=== PATIENT | male | born 1975 | race Caucasian/White ===

== ENCOUNTER 2016-06-20 14:25 | Emergency (ER) | payer SELFPAY ==
--- NOTE | 2016-06-20 14:52 | ED CLINICAL REPORT ---
Clinical Report - Physicians/Mid Levels [facility] [address] [place] [address] 06/20/2016 14:26 Patient: SALAS FERNANDEZ Arrived- By private vehicle. Historian- patient. HISTORY OF PRESENT ILLNESS Chief Complaint: LESION. This started The past few days and is still present and worsening. It was gradual in onset and has been constant but is not gone now. It is described as painful and burning. It has been located on the right knee. No cause has been identified. (patient reports having a small blister to the anterior aspect of the right knee. Patient reports that he went to work and noted that the area had popped. Patient reports that he had expressed clear looking fluid from the wound. The patient states that over the past few days has been getting progressively worse and noted the redness surrounding the area.). Similar symptoms previously: None. Recent medical care: Not recently seen/assessed. REVIEW OF SYSTEMS No fever, nausea or vomiting. All systems otherwise negative, except as recorded above. PAST HISTORY See nurses notes. Tetanus immunization status is up-to-date. SOCIAL HISTORY Never smoker. Alcohol use. History of occasional drug use: marijuana. Is a local resident. ADDITIONAL NOTES The nursing notes have been reviewed. PHYSICAL EXAM Vital Signs: 06/20/2016 14:31 BP: 117/77. HR: 97. RR: 20. O2 saturation: 100%. Temp: 98.8 F. Blood pressure normal. Oxygen saturation normal. Appearance: Alert. Oriented X3. No acute distress. Eyes: Pupils equal, round and reactive to light. Conjunctivae and eyelids normal. ENT: Ears normal. Nose normal. Pharynx normal. Neck: Neck supple. CVS: Normal heart rate and rhythm. Heart sounds normal. Respiratory: No respiratory distress. Breath sounds normal. Chest nontender. Abdomen: Nontender. No organomegaly. Skin: Skin warm and dry. Normal skin color. No rash. Normal skin turgor. (kimberley of cellulitis to the anterior aspect of the right knee. Right-sided inguinal lymphadenopathy. No other overlying skin changes. There is a small abrasion to the middle aspect of theright anterior knee in the middle of the area of cellulitis. Area of cellulitis extends from the anterior aspect of the knee to the proximal walden and distal thigh. At this widest diameter it is only 5 cm wide and approximately 9 cm long. the areas outlined with a skin pen. No abscess noted. Joint is not affected. No crepitus. No bony abnormalities. No foreign bodies.). Extremities: Normal external inspection. Extremities nontender. Neuro: Oriented X 3. No motor deficit. No sensory deficit. PROGRESS AND PROCEDURES Course of Care: The patient is a pleasant 40-year-old male presenting for evaluation of cellulitis of the right lower extremity. On examination, there is no concern for septic joint. It is clearly limited to the surface skin. There is no signs of abscess or need for drainage. first dose of antibiotic provided here in the emergency department. Do not the patient is being admitted to the hospital. No signs of sepsis. no evidence of compartment syndrome. Patient is agreeable to the treatment and plan. I discussed with patient workup, diagnosis, home care, follow-up, and return precautions. All Questions answered. The patient expressed understanding of these instructions and was agreeable to them. Disposition: Discharged. Condition: good. CLINICAL IMPRESSION 06/20/2016 14:31 BP: 117/77. HR: 97. RR: 20. O2 saturation: 100%. Temp: 98.8 F. Blood pressure normal. Oxygen saturation normal. Cellulitis of the right knee (acute). INSTRUCTIONS Do not work for two days. (Do not take old antibiotics. Finish your course completely. Ask your pharmacist or primary care doctor for any questions.). Your Current Medications: CONTINUE TAKING THE FOLLOWING MEDICATIONS: None*. Prescription Medications: Keflex 500 mg: take 1 capsule orally every 8 hours for 10 days. No refill. Substitution is permissible. (disp 30 caps) Bactrim DS 800 mg / 160 mg: take 1 tablet orally every 12 hours for 10 days. No refill. Substitution is permissible. (Disp 20 tabs) Follow-up: Return to the emergency department as needed. Screening today revealed the patient's blood pressure to be in the normal range. The patient should follow up with a primary care provider for blood pressure management. Understanding of the discharge instructions verbalized by patient. Follow-up with: [facility], , , [address], , [place], [address] Follow up in two days. Reason for referral: Contact for follow up appointment if you do not have a primary care doctor. (Electronically signed by Esequiel Schneider Dr. 06/26/2016 5:43)
--- NOTE | 2016-06-20 14:52 | ED CLINICAL REPORT ---
Clinical Report - Physicians/Mid Levels [facility] [address] [place] [address] 06/20/2016 14:26 Patient: SALAS FERNANDEZ Arrived- By private vehicle. Historian- patient. HISTORY OF PRESENT ILLNESS Chief Complaint: LESION. This started The past few days and is still present and worsening. It was gradual in onset and has been constant but is not gone now. It is described as painful and burning. It has been located on the right knee. No cause has been identified. (patient reports having a small blister to the anterior aspect of the right knee. Patient reports that he went to work and noted that the area had popped. Patient reports that he had expressed clear looking fluid from the wound. The patient states that over the past few days has been getting progressively worse and noted the redness surrounding the area.). Similar symptoms previously: None. Recent medical care: Not recently seen/assessed. REVIEW OF SYSTEMS No fever, nausea or vomiting. All systems otherwise negative, except as recorded above. PAST HISTORY See nurses notes. Tetanus immunization status is up-to-date. SOCIAL HISTORY Never smoker. Alcohol use. History of occasional drug use: marijuana. Is a local resident. ADDITIONAL NOTES The nursing notes have been reviewed. PHYSICAL EXAM Vital Signs: 06/20/2016 14:31 BP: 117/77. HR: 97. RR: 20. O2 saturation: 100%. Temp: 98.8 F. Blood pressure normal. Oxygen saturation normal. Appearance: Alert. Oriented X3. No acute distress. Eyes: Pupils equal, round and reactive to light. Conjunctivae and eyelids normal. ENT: Ears normal. Nose normal. Pharynx normal. Neck: Neck supple. CVS: Normal heart rate and rhythm. Heart sounds normal. Respiratory: No respiratory distress. Breath sounds normal. Chest nontender. Abdomen: Nontender. No organomegaly. Skin: Skin warm and dry. Normal skin color. No rash. Normal skin turgor. (kimberley of cellulitis to the anterior aspect of the right knee. Right-sided inguinal lymphadenopathy. No other overlying skin changes. There is a small abrasion to the middle aspect of theright anterior knee in the middle of the area of cellulitis. Area of cellulitis extends from the anterior aspect of the knee to the proximal walden and distal thigh. At this widest diameter it is only 5 cm wide and approximately 9 cm long. the areas outlined with a skin pen. No abscess noted. Joint is not affected. No crepitus. No bony abnormalities. No foreign bodies.). Extremities: Normal external inspection. Extremities nontender. Neuro: Oriented X 3. No motor deficit. No sensory deficit. PROGRESS AND PROCEDURES Course of Care: The patient is a pleasant 40-year-old male presenting for evaluation of cellulitis of the right lower extremity. On examination, there is no concern for septic joint. It is clearly limited to the surface skin. There is no signs of abscess or need for drainage. first dose of antibiotic provided here in the emergency department. Do not the patient is being admitted to the hospital. No signs of sepsis. no evidence of compartment syndrome. Patient is agreeable to the treatment and plan. I discussed with patient workup, diagnosis, home care, follow-up, and return precautions. All Questions answered. The patient expressed understanding of these instructions and was agreeable to them. Disposition: Discharged. Condition: good. CLINICAL IMPRESSION 06/20/2016 14:31 BP: 117/77. HR: 97. RR: 20. O2 saturation: 100%. Temp: 98.8 F. Blood pressure normal. Oxygen saturation normal. Cellulitis of the right knee (acute). INSTRUCTIONS Do not work for two days. (Do not take old antibiotics. Finish your course completely. Ask your pharmacist or primary care doctor for any questions.). Your Current Medications: CONTINUE TAKING THE FOLLOWING MEDICATIONS: None*. Prescription Medications: Keflex 500 mg: take 1 capsule orally every 8 hours for 10 days. No refill. Substitution is permissible. (disp 30 caps) Bactrim DS 800 mg / 160 mg: take 1 tablet orally every 12 hours for 10 days. No refill. Substitution is permissible. (Disp 20 tabs) Follow-up: Return to the emergency department as needed. Screening today revealed the patient's blood pressure to be in the normal range. The patient should follow up with a primary care provider for blood pressure management. Understanding of the discharge instructions verbalized by patient. Follow-up with: [facility], , , [address], , [place], [address] Follow up in two days. Reason for referral: Contact for follow up appointment if you do not have a primary care doctor. (Electronically signed by Esequiel Schneider Dr. 06/26/2016 5:43)
--- NOTE | 2016-06-20 14:52 | ED NURSING NOTES ---
Clinical Report - Nurses [facility] [place] [address] 06/20/2016 14:26 Patient: SALAS FERNANDEZ TRIAGE Triage time 14:32. Acuity: LEVEL 3. Chief Complaint: RIGHT LOWER EXTREMITY PAIN, SWELLING and REDNESS. --14:39 Jason Fam R.N. 14:31 06/20/16. BP: 117/77. HR: 97. RR: 20. O2 saturation: 100%. Temp: 98.8 F. Pain level now 06/18. --14:39 Jason Fam R.N. Weight: 77.1 kg stated. Height/Length: 72 inches Per Patient. BMI: 23.1. --14:37 Jason Fam R.N. Medications None. --14:37 Jason Fam R.N. Allergies None. --14:37 Jason Fam R.N. History Arrived by private vehicle. Historian: patient. An injury may have occurred. 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 SOCIAL HX: Smoker- current status unknown. Alcohol use. History of drug use: marijuana. FALL RISK ASSESSMENT: Fall risk assessment completed. No fall risk identified. NUTRITIONAL RISK ASSESSMENT: The nutritional risk assessment revealed no deficiencies. FUNCTIONAL ASSESSMENT: Functional assessment: no impairments noted. LEARNING NEEDS ASSESSMENT: The learning needs assessment revealed no barriers. SKIN INTEGRITY ASSESSMENT: Skin integrity risk assessment completed. No skin integrity risk identified. --14:39 Jason Fam R.N. PHYSICAL ASSESSMENT GENERAL / NEURO / PSYCH: Alert. Appears in no acute distress. Appears in pain. EXTREMITIES: Extremity pulses are within normal limits. Neuro-vascular status intact to the extremity. --14:41 Jason Fam R.N. NURSING PROGRESS NOTES Patient identifiers checked. Call light placed in reach. Bed placed in lowest position. --14:41 Jason Fam R.N. 14:57 06/20/2016 Keflex (Cephalexin) PO Capsules 500 mg given. --15:07 Jason Fam R.N. Locked/Released at 06/20/2016 15:09 by Jason Fam R.N.
--- NOTE | 2016-06-20 14:52 | ED NURSING NOTES ---
Clinical Report - Nurses [facility] [place] [address] 06/20/2016 14:26 Patient: SALAS FERNANDEZ TRIAGE Triage time 14:32. Acuity: LEVEL 3. Chief Complaint: RIGHT LOWER EXTREMITY PAIN, SWELLING and REDNESS. --14:39 Jason Fam R.N. 14:31 06/20/16. BP: 117/77. HR: 97. RR: 20. O2 saturation: 100%. Temp: 98.8 F. Pain level now 06/18. --14:39 Jason Fam R.N. Weight: 77.1 kg stated. Height/Length: 72 inches Per Patient. BMI: 23.1. --14:37 Jason Fam R.N. Medications None. --14:37 Jason Fam R.N. Allergies None. --14:37 Jason Fam R.N. History Arrived by private vehicle. Historian: patient. An injury may have occurred. 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 SOCIAL HX: Smoker- current status unknown. Alcohol use. History of drug use: marijuana. FALL RISK ASSESSMENT: Fall risk assessment completed. No fall risk identified. NUTRITIONAL RISK ASSESSMENT: The nutritional risk assessment revealed no deficiencies. FUNCTIONAL ASSESSMENT: Functional assessment: no impairments noted. LEARNING NEEDS ASSESSMENT: The learning needs assessment revealed no barriers. SKIN INTEGRITY ASSESSMENT: Skin integrity risk assessment completed. No skin integrity risk identified. --14:39 Jason Fam R.N. PHYSICAL ASSESSMENT GENERAL / NEURO / PSYCH: Alert. Appears in no acute distress. Appears in pain. EXTREMITIES: Extremity pulses are within normal limits. Neuro-vascular status intact to the extremity. --14:41 Jason Fam R.N. NURSING PROGRESS NOTES Patient identifiers checked. Call light placed in reach. Bed placed in lowest position. --14:41 Jason Fam R.N. 14:57 06/20/2016 Keflex (Cephalexin) PO Capsules 500 mg given. --15:07 Jason Fam R.N. Locked/Released at 06/20/2016 15:09 by Jason Fam R.N.
--- NOTE | 2016-06-20 14:53 | ED ORDER SUMMARY ---
..... Patient: SALAS FERNANDEZ OrderSheet [facility] VisitID: [id number] [address] [place] [address] 40y, M Registration Date/Time: 06/20/2016 ORDER SHEET Weight: 77.1 kg (stated) Allergies: None GENERAL ORDERS: MEDICATION ORDERS: Keflex PO 500 mg (NOW) (14:48 06/20/2016 Fiona Nichole) (15:07 GMarshalpablo R.N.) IV FLUIDS: ORDER SHEET NOTES: [Electronically signed by Jason Fam R.N. (15:09 06/20/2016)] [Electronically signed by Esequiel Schneider Dr. (05:43 06/26/2016)] [Electronically locked/signed by Jason Fam R.N. (15:09 06/20/2016)]
--- NOTE | 2016-06-20 14:53 | ED ORDER SUMMARY ---
..... Patient: SALAS FERNANDEZ OrderSheet [facility] VisitID: [id number] [address] [place] [address] 40y, M Registration Date/Time: 06/20/2016 ORDER SHEET Weight: 77.1 kg (stated) Allergies: None GENERAL ORDERS: MEDICATION ORDERS: Keflex PO 500 mg (NOW) (14:48 06/20/2016 Fiona Nichole) (15:07 GMarshalpablo R.N.) IV FLUIDS: ORDER SHEET NOTES: [Electronically signed by Jason Fam R.N. (15:09 06/20/2016)] [Electronically signed by Esequiel Schneider Dr. (05:43 06/26/2016)] [Electronically locked/signed by Jason Fam R.N. (15:09 06/20/2016)]
--- NOTE | 2016-06-26 05:43 | ED MED RECONCILIATION SUMMARY ---
Patient: SALAS FERNANDEZ Medication Reconciliation Report [facility] VisitID: [id number] [address] [place] [address] 40y, M Registration Date/Time: 06/20/2016 Weight: 77.1 kg Height/Length: 72 in. BMI: 23.1 ALLERGIES: None The patient's Home Medications are listed below: NONE. The source(s) of the original Home Medication information: Not obtained. The following Medications were given to the patient in the Emergency Department: Keflex [PO] PO 500 mg, administered: 06/20/2016 2:57:00 PM The following Medications were prescribed to the patient: Keflex 500 mg: take 1 capsule orally every 8 hours for 10 days. No refill. Substitution is permissible.(disp 30 caps) -- Esequiel Schneider Dr. Bactrim DS 800 mg / 160 mg: take 1 tablet orally every 12 hours for 10 days. No refill. Substitution is permissible.(Disp 20 tabs) -- Esequiel Schneider Dr.
--- NOTE | 2016-06-26 05:43 | ED MED RECONCILIATION SUMMARY ---
Patient: SALAS FERNANDEZ Medication Reconciliation Report [facility] VisitID: [id number] [address] [place] [address] 40y, M Registration Date/Time: 06/20/2016 Weight: 77.1 kg Height/Length: 72 in. BMI: 23.1 ALLERGIES: None The patient's Home Medications are listed below: NONE. The source(s) of the original Home Medication information: Not obtained. The following Medications were given to the patient in the Emergency Department: Keflex [PO] PO 500 mg, administered: 06/20/2016 2:57:00 PM The following Medications were prescribed to the patient: Keflex 500 mg: take 1 capsule orally every 8 hours for 10 days. No refill. Substitution is permissible.(disp 30 caps) -- Esequiel Schneider Dr. Bactrim DS 800 mg / 160 mg: take 1 tablet orally every 12 hours for 10 days. No refill. Substitution is permissible.(Disp 20 tabs) -- Esequiel Schneider Dr.
--- NOTE | 2016-06-26 05:43 | ED MAR SUMMARY ---
..... Medication Administration Record [facility] [address] [place] [address] Patient: SALAS FERNANDEZ Visit ID: [id number] 40y, M Weight: 77.1 kg Height/Length: 72 in BMI: 23.1 ALLERGIES: None Given 14:57 06/20/2016 Jason Fam R.N. Medication Administered: KEFLEX [PO] (CEPHALEXIN), Dose: 500 mg Capsules PO. Medication Ordered: Keflex PO 500 mg (NOW).
--- NOTE | 2016-06-26 05:43 | ED DISCHARGE INSTRUCTIONS ---
Patient: SALAS FERNANDEZ General Instructions [facility] VisitID: [id number] [address] [place] [address] 40y, M Registration Date/Time: 06/20/2016 06/20/2016 14:31 BP: 117/77. HR: 97. RR: 20. O2 saturation: 100%. Temp: 98.8 F. Blood pressure normal. Oxygen saturation normal. Cellulitis of the right knee (acute). INSTRUCTIONS Do not work for two days. (Do not take old antibiotics. Finish your course completely. Ask your pharmacist or primary care doctor for any questions.). Your Current Medications: CONTINUE TAKING THE FOLLOWING MEDICATIONS: None*. Prescription Medications: Keflex 500 mg: take 1 capsule orally every 8 hours for 10 days. No refill. Substitution is permissible. (disp 30 caps) Bactrim DS 800 mg / 160 mg: take 1 tablet orally every 12 hours for 10 days. No refill. Substitution is permissible. (Disp 20 tabs) Follow-up: Return to the emergency department as needed. Screening today revealed the patient's blood pressure to be in the normal range. The patient should follow up with a primary care provider for blood pressure management. Understanding of the discharge instructions verbalized by patient. Follow-up with: [facility], , , [address], [place], [id number] Follow up in two days. Reason for referral: Contact for follow up appointment if you do not have a primary care doctor. ADDITIONAL INFORMATION Cellulitis You have an infection of the skin known as cellulitis. This usually starts with a scrape, cut, insect bite, blister or other opening in the skin which becomes infected. This is a serious condition. It must be watched closely to be sure the infection is not spreading. With antibiotic treatment, the size of the red area will gradually shrink in size until the skin returns to normal. This will take 7-10 days. The red area should never increase in size once the antibiotic medicine has been started. Occasionally, an infection will be resistant to one antibiotic and another one will have to be used. Home Care: 1) Limit the use of the affected part, since excess movement can cause the infection to spread. 2) If the infection is on your leg, walk as little as possible during the first few days of the treatment. Keep your leg elevated while sitting. This will reduce swelling. 3) Take all of the antibiotic medicine exactly as directed until it is gone. Be careful not to miss any doses, especially during the first seven days. Follow Up with your doctor or this facility as directed. Check the infected area daily for the warning signs listed below. Get Prompt Medical Attention if any of the following occur: -- Spreading area of redness -- Increasing swelling or pain -- Appearance of pus or drainage -- Fever over 100.4 F (38.0 C) oral, or over 101.4 F (38.6 C) rectal, after two days on antibiotics Cephalexin Monohydrate Oral tablet What is this medicine? CEPHALEXIN (sef a MELISSA in) is a cephalosporin antibiotic. It is used to treat certain kinds of bacterial infections It will not work for colds, flu, or other viral infections. How should I use this medicine? Take this medicine by mouth with a full glass of water. Follow the directions on the prescription label. This medicine can be taken with or without food. Take your medicine at regular intervals. Do not take your medicine more often than directed. Take all of your medicine as directed even if you think you are better. Do not skip doses or stop your medicine early. Talk to your materials planning analyst regarding the use of this medicine in children. While this drug may be prescribed for selected conditions, precautions do apply. What side effects may I notice from receiving this medicine? Side effects that you should report to your doctor or health interior plant caretaker as soon as possible: allergic reactions like skin rash, itching or hives, swelling of the face, lips, or tongue breathing problems pain or trouble passing urine redness, blistering, peeling or loosening of the skin, including inside the mouth severe or watery diarrhea unusually weak or tired yellowing of the eyes, skin Side effects that usually do not require medical attention (report to your doctor or health interior plant caretaker if they continue or are bothersome): gas or heartburn genital or anal irritation headache joint or muscle pain nausea, vomiting What may interact with this medicine? probenecid some other antibiotics What if I miss a dose? If you miss a dose, take it as soon as you can. If it is almost time for your next dose, take only that dose. Do not take double or extra doses. There should be at least 4 to 6 hours between doses. Where should I keep my medicine? Keep out of the reach of children. Store at room temperature between 59 and 86 degrees F (15 and 30 degrees C). Throw away any unused medicine after the expiration date. What should I tell my health care provider before I take this medicine? They need to know if you have any of these conditions: kidney disease stomach or intestine problems, especially colitis an unusual or allergic reaction to cephalexin, other cephalosporins, penicillins, other antibiotics, medicines, foods, dyes or preservatives or trying to get breast-feeding What should I watch for while using this medicine? Tell your doctor or health interior plant caretaker if your symptoms do not begin to improve in a few days. Do not treat diarrhea with over the counter products. Contact your doctor if you have diarrhea that lasts more than 2 days or if it is severe and watery. If you have diabetes, you may get a false-positive result for sugar in your urine. Check with your doctor or health interior plant caretaker. Sulfamethoxazole, Trimethoprim Oral tablet What is this medicine? SULFAMETHOXAZOLE; TRIMETHOPRIM or SMX-TMP (suhl fuh meth OK allyson zohl; trye METH oh prim) is a combination of a sulfonamide antibiotic and a second antibiotic, trimethoprim. It is used to treat or prevent certain kinds of bacterial infections. It will not work for colds, flu, or other viral infections. How should I use this medicine? Take this medicine by mouth with a full glass of water. Follow the directions on the prescription label. Take your medicine at regular intervals. Do not take it more often than directed. Do not skip doses or stop your medicine early. Talk to your materials planning analyst regarding the use of this medicine in children. Special care may be needed. This medicine has been used in children as young as 2 months of age. What side effects may I notice from receiving this medicine? Side effects that you should report to your doctor or health interior plant caretaker as soon as possible: allergic reactions like skin rash or hives, swelling of the face, lips, or tongue breathing problems fever or chills, sore throat irregular heartbeat, chest pain joint or muscle pain pain or difficulty passing urine red pinpoint spots on skin redness, blistering, peeling or loosening of the skin, including inside the mouth unusual bleeding or bruising unusually weak or tired yellowing of the eyes or skin Side effects that usually do not require medical attention (report to your doctor or health interior plant caretaker if they continue or are bothersome): diarrhea dizziness headache loss of appetite nausea, vomiting nervousness What may interact with this medicine? Do not take this medicine with any of the following medications: aminobenzoate potassium dofetilide metronidazole This medicine may also interact with the following medications: KATHLEEN inhibitors like benazepril, enalapril, lisinopril, and ramipril cyclosporine digoxin diuretics indomethacin medicines for diabetes methenamine methotrexate phenytoin potassium supplements pyrimethamine sulfinpyrazone tricyclic antidepressants warfarin What if I miss a dose? If you miss a dose, take it as soon as you can. If it is almost time for your next dose, take only that dose. Do not take double or extra doses. Where should I keep my medicine? Keep out of the reach of children. Store at room temperature between 20 to 25 degrees C (68 to 77 degrees F). Protect from light. Throw away any unused medicine after the expiration date. What should I tell my health care provider before I take this medicine? They need to know if you have any of these conditions: anemia asthma being treated with anticonvulsants if you frequently drink alcohol containing drinks kidney disease liver disease low level of folic acid or [id number] dehydrogenase poor nutrition or malabsorption porphyria severe allergies thyroid disorder an unusual or allergic reaction to sulfamethoxazole, trimethoprim, sulfa drugs, other medicines, foods, dyes, or preservatives or trying to get breast-feeding What should I watch for while using this medicine? Tell your doctor or health interior plant caretaker if your symptoms do not improve. Drink several glasses of water a day to reduce the risk of kidney problems. Do not treat diarrhea with over the counter products. Contact your doctor if you have diarrhea that lasts more than 2 days or if it is severe and watery. This medicine can make you more sensitive to the sun. Keep out of the sun. If you cannot avoid being in the sun, wear protective clothing and use a sunscreen. Do not use sun lamps or tanning beds/booths. You have been given the following additional information: Cellulitis Cephalexin Monohydrate Oral tablet Sulfamethoxazole, Trimethoprim Oral tablet Do not work for two days. (Electronically signed by Esequiel Schneider Dr. 06/26/2016 5:43)
--- NOTE | 2016-06-26 05:43 | ED MAR SUMMARY ---
..... Medication Administration Record [facility] [address] [place] [address] Patient: SALAS FERNANDEZ Visit ID: [id number] 40y, M Weight: 77.1 kg Height/Length: 72 in BMI: 23.1 ALLERGIES: None Given 14:57 06/20/2016 Jason Fam R.N. Medication Administered: KEFLEX [PO] (CEPHALEXIN), Dose: 500 mg Capsules PO. Medication Ordered: Keflex PO 500 mg (NOW).
--- NOTE | 2016-06-26 05:43 | ED DISCHARGE INSTRUCTIONS ---
Patient: SALAS FERNANDEZ General Instructions [facility] VisitID: [id number] [address] [place] [address] 40y, M Registration Date/Time: 06/20/2016 06/20/2016 14:31 BP: 117/77. HR: 97. RR: 20. O2 saturation: 100%. Temp: 98.8 F. Blood pressure normal. Oxygen saturation normal. Cellulitis of the right knee (acute). INSTRUCTIONS Do not work for two days. (Do not take old antibiotics. Finish your course completely. Ask your pharmacist or primary care doctor for any questions.). Your Current Medications: CONTINUE TAKING THE FOLLOWING MEDICATIONS: None*. Prescription Medications: Keflex 500 mg: take 1 capsule orally every 8 hours for 10 days. No refill. Substitution is permissible. (disp 30 caps) Bactrim DS 800 mg / 160 mg: take 1 tablet orally every 12 hours for 10 days. No refill. Substitution is permissible. (Disp 20 tabs) Follow-up: Return to the emergency department as needed. Screening today revealed the patient's blood pressure to be in the normal range. The patient should follow up with a primary care provider for blood pressure management. Understanding of the discharge instructions verbalized by patient. Follow-up with: [facility], , , [address], [place], [id number] Follow up in two days. Reason for referral: Contact for follow up appointment if you do not have a primary care doctor. ADDITIONAL INFORMATION Cellulitis You have an infection of the skin known as cellulitis. This usually starts with a scrape, cut, insect bite, blister or other opening in the skin which becomes infected. This is a serious condition. It must be watched closely to be sure the infection is not spreading. With antibiotic treatment, the size of the red area will gradually shrink in size until the skin returns to normal. This will take 7-10 days. The red area should never increase in size once the antibiotic medicine has been started. Occasionally, an infection will be resistant to one antibiotic and another one will have to be used. Home Care: 1) Limit the use of the affected part, since excess movement can cause the infection to spread. 2) If the infection is on your leg, walk as little as possible during the first few days of the treatment. Keep your leg elevated while sitting. This will reduce swelling. 3) Take all of the antibiotic medicine exactly as directed until it is gone. Be careful not to miss any doses, especially during the first seven days. Follow Up with your doctor or this facility as directed. Check the infected area daily for the warning signs listed below. Get Prompt Medical Attention if any of the following occur: -- Spreading area of redness -- Increasing swelling or pain -- Appearance of pus or drainage -- Fever over 100.4 F (38.0 C) oral, or over 101.4 F (38.6 C) rectal, after two days on antibiotics Cephalexin Monohydrate Oral tablet What is this medicine? CEPHALEXIN (sef a MELISSA in) is a cephalosporin antibiotic. It is used to treat certain kinds of bacterial infections It will not work for colds, flu, or other viral infections. How should I use this medicine? Take this medicine by mouth with a full glass of water. Follow the directions on the prescription label. This medicine can be taken with or without food. Take your medicine at regular intervals. Do not take your medicine more often than directed. Take all of your medicine as directed even if you think you are better. Do not skip doses or stop your medicine early. Talk to your greeter regarding the use of this medicine in children. While this drug may be prescribed for selected conditions, precautions do apply. What side effects may I notice from receiving this medicine? Side effects that you should report to your doctor or health care nurse rn as soon as possible: allergic reactions like skin rash, itching or hives, swelling of the face, lips, or tongue breathing problems pain or trouble passing urine redness, blistering, peeling or loosening of the skin, including inside the mouth severe or watery diarrhea unusually weak or tired yellowing of the eyes, skin Side effects that usually do not require medical attention (report to your doctor or health care nurse rn if they continue or are bothersome): gas or heartburn genital or anal irritation headache joint or muscle pain nausea, vomiting What may interact with this medicine? probenecid some other antibiotics What if I miss a dose? If you miss a dose, take it as soon as you can. If it is almost time for your next dose, take only that dose. Do not take double or extra doses. There should be at least 4 to 6 hours between doses. Where should I keep my medicine? Keep out of the reach of children. Store at room temperature between 59 and 86 degrees F (15 and 30 degrees C). Throw away any unused medicine after the expiration date. What should I tell my health care provider before I take this medicine? They need to know if you have any of these conditions: kidney disease stomach or intestine problems, especially colitis an unusual or allergic reaction to cephalexin, other cephalosporins, penicillins, other antibiotics, medicines, foods, dyes or preservatives or trying to get breast-feeding What should I watch for while using this medicine? Tell your doctor or health care nurse rn if your symptoms do not begin to improve in a few days. Do not treat diarrhea with over the counter products. Contact your doctor if you have diarrhea that lasts more than 2 days or if it is severe and watery. If you have diabetes, you may get a false-positive result for sugar in your urine. Check with your doctor or health care nurse rn. Sulfamethoxazole, Trimethoprim Oral tablet What is this medicine? SULFAMETHOXAZOLE; TRIMETHOPRIM or SMX-TMP (suhl fuh meth OK allyson zohl; trye METH oh prim) is a combination of a sulfonamide antibiotic and a second antibiotic, trimethoprim. It is used to treat or prevent certain kinds of bacterial infections. It will not work for colds, flu, or other viral infections. How should I use this medicine? Take this medicine by mouth with a full glass of water. Follow the directions on the prescription label. Take your medicine at regular intervals. Do not take it more often than directed. Do not skip doses or stop your medicine early. Talk to your greeter regarding the use of this medicine in children. Special care may be needed. This medicine has been used in children as young as 2 months of age. What side effects may I notice from receiving this medicine? Side effects that you should report to your doctor or health care nurse rn as soon as possible: allergic reactions like skin rash or hives, swelling of the face, lips, or tongue breathing problems fever or chills, sore throat irregular heartbeat, chest pain joint or muscle pain pain or difficulty passing urine red pinpoint spots on skin redness, blistering, peeling or loosening of the skin, including inside the mouth unusual bleeding or bruising unusually weak or tired yellowing of the eyes or skin Side effects that usually do not require medical attention (report to your doctor or health care nurse rn if they continue or are bothersome): diarrhea dizziness headache loss of appetite nausea, vomiting nervousness What may interact with this medicine? Do not take this medicine with any of the following medications: aminobenzoate potassium dofetilide metronidazole This medicine may also interact with the following medications: KATHLEEN inhibitors like benazepril, enalapril, lisinopril, and ramipril cyclosporine digoxin diuretics indomethacin medicines for diabetes methenamine methotrexate phenytoin potassium supplements pyrimethamine sulfinpyrazone tricyclic antidepressants warfarin What if I miss a dose? If you miss a dose, take it as soon as you can. If it is almost time for your next dose, take only that dose. Do not take double or extra doses. Where should I keep my medicine? Keep out of the reach of children. Store at room temperature between 20 to 25 degrees C (68 to 77 degrees F). Protect from light. Throw away any unused medicine after the expiration date. What should I tell my health care provider before I take this medicine? They need to know if you have any of these conditions: anemia asthma being treated with anticonvulsants if you frequently drink alcohol containing drinks kidney disease liver disease low level of folic acid or [id number] dehydrogenase poor nutrition or malabsorption porphyria severe allergies thyroid disorder an unusual or allergic reaction to sulfamethoxazole, trimethoprim, sulfa drugs, other medicines, foods, dyes, or preservatives or trying to get breast-feeding What should I watch for while using this medicine? Tell your doctor or health care nurse rn if your symptoms do not improve. Drink several glasses of water a day to reduce the risk of kidney problems. Do not treat diarrhea with over the counter products. Contact your doctor if you have diarrhea that lasts more than 2 days or if it is severe and watery. This medicine can make you more sensitive to the sun. Keep out of the sun. If you cannot avoid being in the sun, wear protective clothing and use a sunscreen. Do not use sun lamps or tanning beds/booths. You have been given the following additional information: Cellulitis Cephalexin Monohydrate Oral tablet Sulfamethoxazole, Trimethoprim Oral tablet Do not work for two days. (Electronically signed by Esequiel Schneider Dr. 06/26/2016 5:43)
== END 2016-06-20 15:10 | disposition home or self-care (01) ==
LOC: ED SRH 14:25
DX: L03.115 Cellulitis of right lower limb (principal)